=== PATIENT | female | born 1945 | race Caucasian/White ===

== ENCOUNTER → 2022-12-01 12:43 | Outpatient (BNVA) | payer MEDICARE, SELFPAY | PROVIDERS: PCP Nurse Practitioner Family; Visit Provider Nurse Practitioner Family | DX: J44.9 Chronic obstructive pulmonary disease, unspecified (principal); G47.00 Insomnia, unspecified; E11.9 Type 2 diabetes mellitus without complications | CPT/HCPCS: 80053; 80061; 82043; 83036; 84443; 85025 ==

== ENCOUNTER → 2022-12-21 09:54 | Outpatient (BNVA) | payer MEDICARE, SELFPAY | PROVIDERS: PCP Nurse Practitioner Family; Visit Provider Nurse Practitioner Family | DX: R89.9 Unspecified abnormal finding in specimens from other organs, systems and tissues (principal); R79.9 Abnormal finding of blood chemistry, unspecified | CPT/HCPCS: 82607; 82728; 82746; 83550; 85025 ==

== ENCOUNTER → 2022-12-29 13:25 | Outpatient (BNVA) | payer MEDICARE, SELFPAY | PROVIDERS: PCP Nurse Practitioner Family; Visit Provider Nurse Practitioner Family | DX: R89.9 Unspecified abnormal finding in specimens from other organs, systems and tissues (principal) | CPT/HCPCS: 82270 ==

== ENCOUNTER → 2022-12-31 15:20 | Outpatient (BNVA) | payer MEDICARE, SELFPAY | PROVIDERS: PCP Nurse Practitioner Family; Visit Provider Nurse Practitioner Family | DX: Z12.11 Encounter for screening for malignant neoplasm of colon (principal) | CPT/HCPCS: 82270 ==

== ENCOUNTER → 2023-01-12 09:39 | Outpatient (BNVA) | payer MEDICARE, SELFPAY | PROVIDERS: PCP Nurse Practitioner Family; Visit Provider Nurse Practitioner Family | DX: D50.9 Iron deficiency anemia, unspecified (principal) | CPT/HCPCS: 80053; 82728; 83550; 85025 ==

== ENCOUNTER 2023-02-10 10:23 | Emergency (ER) | payer MEDICARE, MEDICAID, SELFPAY ==
[2023-02-10 10:27] VITALS: BP 138/70; PULSE 81; RESP 16; TEMP 36.9; O2SAT 93; BMI 24.0
--- NOTE | 2023-02-10 10:36 | XR_ITS ---
WS: [id number] Right arm and humerus, AP and lateral views, 02/10/2023 Clinical Data: fall injury Comparison: None. Findings: There is a transverse line across the distal right humeral condyle which probably represents a fractu re. There is soft tissue swelling about the right elbow. The shaft of the right humerus and lateral h ead are intact. XR/[place] [address] Impression: Probable fracture of distal right humerus.
--- NOTE | 2023-02-10 10:36 | XR_ITS ---
WS: [id number] Right elbow, 3 views, 02/10/2023 Clinical Data: fall injury Comparison: None. Findings: There is a transverse fracture across the condyles of the distal right humerus. The soft tissues show swelling. The radial head and olecranon are intact. XR/XR elbow RT min 3V* 50121 Impression: Fracture distal right humerus.
--- NOTE | 2023-02-10 10:43 | W.ED.FALL ---
Documented by User: NANETTE Jay 02/10/23 12:00 HPI - Fall General: Chief Complaint: Fall Stated Complaint: FALL/ ARM FRACTURE Time Seen by Provider: 02/10/23 10:25 History of Present Illness: Patient is a 77-year-old female comes to the ED via EMS with right arm injury. Patient says injury occurred yesterday evening. She was at home and went to pull her curtains closed. She has to stand on a love seat to reach the curtains and pull them close. She says she tripped and fell onto floor. She says she did hit right side of her head but denies any loss of consciousness or any headache, nausea or vomiting. Patient is not on a blood thinner. Since fall she has been having pain in her right elbow area. She rates her pain a 9 out of 10. Any range of motion of the elbow causes worsening pain and if she extends her arm she says there is a popping sound. She was unable to get checked out last night because she is watching her grandkids and they were asleep in bed, so she waited to get checked out till the morning. Denies any other injuries. Associated symptoms-after fall: Denies abdominal pain, chest pain, headache(s), hematuria or neck pain Review of Systems Const: Denies: fever(s), chills or fatigue Eyes: Denies: change in vision or eye discomfort ENMT: Denies: throat pain, odynophagia, nasal discharge or nasal congestion Card: Denies: chest pain, palpitations, edema, swelling of feet/ankles, dyspnea on exertion or orthopnea Resp: Denies: dyspnea, productive cough or non-productive cough GI: Denies: abdominal pain, nausea, vomiting, diarrhea, constipation or hematochezia : Denies: flank pain, dysuria or hematuria Musc: Reports: extremity pain (Right elbow), extremity swelling (Right elbow) and limited range of motion (Right elbow); Denies: neck pain or back pain Skin/Breast: Denies: rash or new lesions Neuro: Denies: headache(s), numbness in extremities or weakness in extremities [facility] ED PFSH: Medical History COPD (chronic obstructive pulmonary disease) Diabetes mellitus GERD (gastroesophageal reflux disease) Insomnia Surgical History History of bilateral cataract extraction Family History Mother Heart disease Brother Diabetes Social History Smoking and tobacco status: former smoker Quit status (tobacco): has quit using tobacco Year quit tobacco: quit 2015 Second hand smoke exposure: No Alcohol intake: current Alcohol intake frequency: holidays/special occasions only Alcohol type: beer Substance/Drug Use: never Lives independently: Yes Current occupational status: retired Current gender identity: Female Special amaury needs: No Physical Exam Const: COMMON NORMALS: patient oriented x3 and alert GENERAL APPEARANCE: cooperative HENMT: COMMON NORMALS: normocephalic and atraumatic HEAD & SCALP: normocephalic and atraumatic; no Reid's sign and no raccoon eyes MOUTH: Normal oral and palatal mucosa present THROAT: posterior oropharynx normal and uvula midline Eye: COMMON NORMALS: Equal, round and reactive pupils present, EOMs intact bilaterally and conjunctivae normal CONJUNCTIVA: Yes conjunctivae normal PUPIL: Yes Equal, round and reactive pupils present Neck/C-Spine: COMMON NORMALS: supple GENERAL: Yes normal visual inspection Resp: COMMON NORMALS: normal respiratory effort, No retractions, No use of accessory muscles and clear to auscultation bilaterally AUSCULTATION: clear to auscultation bilaterally Cardio: COMMON NORMALS: regular rate, regular rhythm, S1 normal heart sound present, S2 normal heart sound present, No gallops present (Cardio), No clicks present (Cardio), No murmurs present (Cardio) and Peripheral pulses 2+ throughout RATE: regular rate RHYTHM: regular rhythm HEART SOUNDS: S1 normal heart sound present and S2 normal heart sound present PERIPHERAL PULSES: Peripheral pulses 2+ throughout GI: COMMON NORMALS: Normal to inspection, nondistended, normoactive bowel sounds present, Soft to palpation, non-tender and no masses PALPATION: Yes Soft to palpation : COMMON NORMALS: Yes no CVA tenderness BLADDER/KIDNEY EXAM: Yes no CVA tenderness Back/Pelvis: COMMON NORMALS: no CVA tenderness Extremity: NARRATIVE EXTREMITY EXAM: Right elbow?ecchymosis and swelling noted. No visible deformity seen. Limited range of motion elbow due to pain. Tenderness over distal humerus/superior aspect of elbow. Neurovascular intact. GENERAL: Yes normal exam except as noted Neuro: COMMON NORMALS: patient oriented x3, CN's II-XII intact bilaterally, moves all extremities, no focal motor deficits and no sensory deficits noted SENSORIUM/ORIENTATION: Yes alert COORDINATION/BALANCE: [id number] test normal GAIT: Yes Normal gait present COORDINATION: [id number] test normal Skin: GENERAL SKIN EXAM: dry skin Course Vital Signs: Vital signs: Vital Signs Temperature 98.4 F 02/10/23 10:27 Pulse Rate 81 02/10/23 10:27 Respiratory Rate 16 02/10/23 10:27 Blood Pressure 138/70 02/10/23 10:27 Pulse Oximetry 93 02/10/23 10:27 Oxygen Delivery Me thod Room Air 02/10/23 10:27 MDM - Fall Medical Decision Making Patient is a 77-year-old female comes to the ED via EMS with right arm injury. Patient says injury occurred yesterday evening. She was at home and went to pull her curtains closed. She has to stand on a love seat to reach the curtains and pull them close. She says she tripped and fell onto floor. She says she did hit right side of her head but denies any loss of consciousness or any headache, nausea or vomiting. Patient is not on a blood thinner. Since fall she has been having pain in her right elbow area. She rates her pain a 9 out of 10. Any range of motion of the elbow causes worsening pain and if she extends her arm she says there is a popping sound. She was unable to get checked out last night because she is watching her grandkids and they were asleep in bed, so she waited to get checked out till the morning. Denies any other injuries. Vitals are stable. Neuro exam shows no deficits. Right elbow?ecchymosis and swelling noted. No visible deformity seen. Limited range of motion elbow due to pain. Tenderness over distal humerus/superior aspect of elbow. Neurovascular intact. X-ray of right elbow and right humerus show non displaced distal right humerus fracture. Patient was put in a long-arm splint and sling and I placed order with case management for patient be referred to Ortho for follow-up. Patient stable for discharge home and diagnosed with a right humerus fracture and discharged home with a prescription for hydrocodone to help with pain. Patient understood and agreed with plan. Lab Data Radiology Impressions Elbow X-Ray 02/10/23 10:36 Impression: Fracture distal right humerus. Humerus X-Ray 02/10/23 10:36 Impression: Probable fracture of distal right humerus. Discharge Plan Discharge Patient Disposition: Home Clinical Impression: Humerus distal fracture Qualifiers: Encounter type: initial encounter Fracture type: closed Fracture alignment: nondisplaced Laterality: right Condition: Stable Prescriptions: No Action albuterol sulfate 90 mcg/actuation HFA aerosol inhaler 2 puff inhalation 6XD Trelegy Ellipta 100-62.5-25 mcg blister with device 1 inh inhalation DAILY Mucinex DM 30-600 mg tablet extended release 12 hr 1 tab PO Q12H (DME) oxygen-air delivery systems Device See Rx Instructions .Route Rx Instructions: As directed benzonatate 100 mg capsule 100 mg PO TID PRN (Reason: cough) Qty: 90 2RF nystatin 100,000 unit/mL suspension 5 ml PO QID 7 Days Qty: 140 0RF Rx Instructions: swish and swallow clindamycin HCl 300 mg capsule 300 mg PO TID 10 Days Qty: 30 0RF amitriptyline 25 mg tablet 25 mg PO DAILY hydrocodone-acetaminophen 5-325 mg tablet 1 tab PO DAILY PRN omeprazole 20 mg capsule,delayed release(DR/EC) 20 mg PO DAILY Qty: 90 1RF metformin 500 mg tablet 500 mg PO BID Qty: 60 2RF trazodone 100 mg tablet 100 mg PO DAILY Qty: 90 1RF Discharge Orders: Discharge ED (Routine); Ordered 02/10/23 Ordered By: Kumar Florez Referrals: Aby Bautista FNP [Primary Care Provider] - Discharge Diet: Regular Discharge Activity: Increase activity as tolerated Patient Instructions: Fractures - Humerus, Opioid Safety Activity Restrictions/Additional Instructions: Follow-up with medical provider as directed. Case management should be contacting you in the next several days to set up an appointment with Ortho for follow-up. Take medications as prescribed. Keep splint on and dry and limit activity with right arm until cleared by Ortho. Return to the ER or your medical provider if condition worsens. Please read and understand discharge instructions. Thank you for choosing [facility] for your healthcare needs today. Please realize this is an emergency room and that we are providing you with a medical screening exam and this may not be complete and all inclusive of all the testing and or work up that you may need to determine your ailment or severity of your illness. It is very important that you follow up as instructed or that you return to the Emergency Department should you have concerns or if your condition changes or worsens in any way. Coding Level of Care Code ED Alarm Mechanic for [facility] Documented by User: Martín Servin DO 02/10/23 13:53 HPI - Fall General: Chief Complaint: Fall Stated Complaint: FALL/ ARM FRACTURE Time Seen by Provider: 02/10/23 10:25 [facility] ED PFSH: Medical History COPD (chronic obstructive pulmonary disease) Diabetes mellitus GERD (gastroesophageal reflux disease) Insomnia Surgical History History of bilateral cataract extraction Family History Mother Heart disease Brother Diabetes Social History Smoking and tobacco status: former smoker Quit status (tobacco): has quit using tobacco Year quit tobacco: quit 2015 Second hand smoke exposure: No Alcohol intake: current Alcohol intake frequency: holidays/special occasions only Alcohol type: beer Substance/Drug Use: never Lives independently: Yes Current occupational status: retired Current gender identity: Female Special amaury needs: No Course Vital Signs: Vital signs: Vital Signs Temperature 98.4 F 02/10/23 10:27 Pulse Rate 81 02/10/23 10:27 Respiratory Rate 16 02/10/23 10:27 Blood Pressure 138/70 02/10/23 10:27 Pulse Oximetry 93 02/10/23 10:27 Oxygen Delivery Me thod Room Air 02/10/23 10:27 MDM - Fall Medical Decision Making Patient is a 77-year-old female comes to the ED via EMS with right arm injury. Patient says injury occurred yesterday evening. She was at home and went to pull her curtains closed. She has to stand on a love seat to reach the curtains and pull them close. She says she tripped and fell onto floor. She says she did hit right side of her head but denies any loss of consciousness or any headache, nausea or vomiting. Patient is not on a blood thinner. Since fall she has been having pain in her right elbow area. She rates her pain a 9 out of 10. Any range of motion of the elbow causes worsening pain and if she extends her arm she says there is a popping sound. She was unable to get checked out last night because she is watching her grandkids and they were asleep in bed, so she waited to get checked out till the morning. Denies any other injuries. Vitals are stable. Neuro exam shows no deficits. Right elbow?ecchymosis and swelling noted. No visible deformity seen. Limited range of motion elbow due to pain. Tenderness over distal humerus/superior aspect of elbow. Neurovascular intact. X-ray of right elbow and right humerus show non displaced distal right humerus fracture. Patient was put in a long-arm splint and sling and I placed order with case management for patient be referred to Ortho for follow-up. Patient stable for discharge home and diagnosed with a right humerus fracture and discharged home with a prescription for hydrocodone to help with pain. Patient understood and agreed with plan. Chart reviewed and patient discussed with midlevel. Agree with assessment and plan. Lab Data Radiology Impressions Elbow X-Ray 02/10/23 10:36 Impression: Fracture distal right humerus. Humerus X-Ray 02/10/23 10:36 Impression: Probable fracture of distal right humerus. Discharge Plan Discharge Patient Disposition: Home Clinical Impression: Humerus distal fracture Qualifiers: Encounter type: initial encounter Fracture type: closed Fracture alignment: nondisplaced Laterality: right Condition: Stable Prescriptions: No Action albuterol sulfate 90 mcg/actuation HFA aerosol inhaler 2 puff inhalation 6XD Trelegy Ellipta 100-62.5-25 mcg blister with device 1 inh inhalation DAILY Mucinex DM 30-600 mg tablet extended release 12 hr 1 tab PO Q12H (DME) oxygen-air delivery systems Device See Rx Instructions .Route Rx Instructions: As directed benzonatate 100 mg capsule 100 mg PO TID PRN (Reason: cough) Qty: 90 2RF nystatin 100,000 unit/mL suspension 5 ml PO QID 7 Days Qty: 140 0RF Rx Instructions: swish and swallow clindamycin HCl 300 mg capsule 300 mg PO TID 10 Days Qty: 30 0RF amitriptyline 25 mg tablet 25 mg PO DAILY hydrocodone-acetaminophen 5-325 mg tablet 1 tab PO DAILY PRN omeprazole 20 mg capsule,delayed release(DR/EC) 20 mg PO DAILY Qty: 90 1RF metformin 500 mg tablet 500 mg PO BID Qty: 60 2RF trazodone 100 mg tablet 100 mg PO DAILY Qty: 90 1RF Discharge Orders: Discharge ED (Routine); Ordered 02/10/23 Ordered By: Kumar Florez Referrals: Aby Bautista FNP [Primary Care Provider] - Discharge Diet: Regular Discharge Activity: Increase activity as tolerated Patient Instructions: Fractures - Humerus, Opioid Safety Activity Restrictions/Additional Instructions: Follow-up with medical provider as directed. Case management should be contacting you in the next several days to set up an appointment with Ortho for follow-up. Take medications as prescribed. Keep splint on and dry and limit activity with right arm until cleared by Ortho. Return to the ER or your medical provider if condition worsens. Please read and understand discharge instructions. Thank you for choosing [facility] for your healthcare needs today. Please realize this is an emergency room and that we are providing you with a medical screening exam and this may not be complete and all inclusive of all the testing and or work up that you may need to determine your ailment or severity of your illness. It is very important that you follow up as instructed or that you return to the Emergency Department should you have concerns or if your condition changes or worsens in any way. Coding Level of Care Code ED Alarm Mechanic for [place]
[2023-02-10] MEDS: morphine 4 mg/mL SDV 1 mL IVP (10:59)
[2023-02-10] MEDS: ondansetron 2 mg/ML SDV 2 mL 4 MG IVP (10:59)
--- NOTE | 2023-02-10 15:20 | PC.NURSE ---
Addendum entered by Bernie Carmichael 02/22/23 11:20: Patient had a follow up appointment at ortho - patient did attend appointment. Addendum entered by Bernie Carmichael 02/12/23 11:29: Patient has a follow up appointment scheduled for Thursday, February 16, 2023 at 10:[address] Holly at ortho. Addendum entered by Bernie Carmichael 02/11/23 10:45: shipping/receiving manager received the following message from the ortho clinic regarding follow up appointment: attempt made to contact patient - left vm - trying to get in tomorrow w/ dr petersen Original Note: Patient seen in the ED on 02/10/23/. Referral to ortho for Right distal humerus fracture. Message sent to clinic to call patient with an appt.
== END 2023-02-10 11:53 | disposition home or self-care (01) ==
PROVIDERS: Emergency Provider Physician Assistant; PCP Nurse Practitioner Family
DX: S42.401A Unspecified fracture of lower end of right humerus, initial encounter for closed fracture (principal); W01.0XXA Fall on same level from slipping, tripping and stumbling without subsequent striking against object, initial encounter; Y92.008 Other place in unspecified non-institutional (private) residence as the place of occurrence of the external cause
CPT/HCPCS: 29125; 73060; 73080; 96374; 96375; 99284; J2270; J2405

== ENCOUNTER 2023-02-12 13:53 | Emergency (ER) | payer MEDICARE, MEDICAID, SELFPAY ==
[2023-02-12 13:56] VITALS: BP 125/43; PULSE 87; RESP 16; O2SAT 96
--- NOTE | 2023-02-12 13:58 | W.ED.ARRPALP ---
HPI - Arrhythmia/Palpitations General: Chief Complaint: Arrhythmia/Palpitations Stated Complaint: arrythmias Time Seen by Provider: 02/12/23 13:58 History of Present Illness: Ms. Ramirez is a 77-year-old lady without reported cardiac history presenting to the emergency department for concern over abnormal heart rate. She does have a recent history of arm fracture and has had some pain. Earlier today she noticed that her blood pressure was high and her heart rate was low and variable as low as 40. Denies associated chest pain, shortness of breath above baseline COPD, lightheaded or syncope. Denies changes in medications other than pain medication. Currently symptom-free. No other specific changes in health, exacerbating, or alleviating factors identified. Onset (ago): hour(s) Duration: now resolved Associated symptoms: Reports no associated symptoms Review of Systems General: Reports: 10 or more systems reviewed and unremarkable except in HPI and below PFSH ED PFSH: Medical History COPD (chronic obstructive pulmonary disease) Diabetes mellitus GERD (gastroesophageal reflux disease) Insomnia Surgical History History of bilateral cataract extraction Family History Mother Heart disease Brother Diabetes Social History Smoking and tobacco status: former smoker Quit status (tobacco): has quit using tobacco Year quit tobacco: quit 2015 Second hand smoke exposure: No Alcohol intake: current Alcohol intake frequency: holidays/special occasions only Alcohol type: beer Substance/Drug Use: never Lives independently: Yes Current occupational status: retired Current gender identity: Female Special amaury needs: No Physical Exam Const: COMMON NORMALS: alert GENERAL APPEARANCE: cooperative and well developed HENMT: COMMON NORMALS: normocephalic and atraumatic HEAD & SCALP: normocephalic and atraumatic Eye: COMMON NORMALS: conjunctivae normal CONJUNCTIVA: Yes conjunctivae normal SCLERA: sclerae normal Neck/C-Spine: COMMON NORMALS: supple GENERAL: Yes trachea midline Resp: COMMON NORMALS: clear to auscultation bilaterally EFFORT & INSPECTION: Yes able to speak in complete sentences AUSCULTATION: clear to auscultation bilaterally Cardio: COMMON NORMALS: regular rate and regular rhythm RATE: regular rate RHYTHM: regular rhythm GI: COMMON NORMALS: Soft to palpation PALPATION: Yes Soft to palpation and No Tenderness to palpation present (GI) PERCUSSION: normal to percussion Extremity: GENERAL: Yes normal exam except as noted and No edema Neuro: COMMON NORMALS: moves all extremities SENSORIUM/ORIENTATION: Yes alert and No Orientation impaired Psych: COMMON NORMALS: mental status grossly normal and Normal thought process present THOUGHT PROCESS: Normal thought process present Course Vital Signs: Vital signs: Vital Signs Pulse Rate 91 02/12/23 17:31 Respiratory Rate 15 02/12/23 14:33 Blood Pressure 153/55 02/12/23 15:30 Pulse Oximetry 96 02/12/23 17:31 Oxygen Delivery Me thod Nasal Cannula 02/12/23 15:30 Oxygen Flow Rate 2 02/12/23 15:30 MDM - Arrhythmia/Palpitations Medical Decision Making 77-year-old lady presenting due to concern over variable and abnormal heart rate. Exam as above. EKG demonstrates atrial rhythm with frequent PVCs. In review of SPO2 pleth the majority of all beats are perfusing however there is occasional variability. No STEMI. Labs notable for no leukocytosis, near baseline microcytic anemia. Mild evidence of dehydration on metabolic panel with hyponatremia and hypochloremia. Negative range 2-hour delta troponin. BNP is only minimally elevated without evidence of gross volume overload on clinical exam. Recent prior x-rays reviewed. Patient treated with magnesium replenishment for low magnesium. Exact etiology of patient's symptoms is unclear however does not appear to need hospitalization at this time. I will plan for further outpatient evaluation including Holter monitor, echocardiogram, further evaluation. The results of ED evaluation were discussed with the patient including prescriptions and/or symptomatic cares (if applicable) including appropriate and responsible use, followup plan, and return precautions. The patient verbalized understanding and felt safe for discharge. Medical Records I reviewed the patient's medical records. Lab Data I reviewed the patient's lab results. 02/12/23 14:14 02/12/23 14:14 Laboratory Results WBC 5.6 10^3/uL (4.0-10.0) 02/12/23 14:14 RBC 4.49 10^6/uL (4.1-5.3) 02/12/23 14:14 Hgb 8.8 g/dL (11.5-15.3) L 02/12/23 14:14 Hct 31.5 % (37.0-47.0) L 02/12/23 14:14 MCV 70.2 fl (81-99) L 02/12/23 14:14 MCH 19.6 pg (28.0-34.0) L 02/12/23 14:14 MCHC 27.9 g/dL (30.0-36.0) L 02/12/23 14:14 RDW 18.6 % (12.1-15.1) H 02/12/23 14:14 Plt Count 250 10^3/cmm (130-400) 02/12/23 14:14 MPV 10.7 fL (7.4-10.4) H 02/12/23 14:14 Neut % (Auto) 66.7 % 02/12/23 14:14 Lymph % (Auto) 18.3 % 02/12/23 14:14 Eagle % (Auto) 9.2 % 02/12/23 14:14 Eos % (Auto) 4.3 % 02/12/23 14:14 Baso % (Auto) 1.1 % 02/12/23 14:14 Neut # (Auto) 3.77 10^3/uL (1.8-7.7) 02/12/23 14:14 Lymph # (Auto) 1.0 10^3/uL (0.8-4.8) 02/12/23 14:14 Eagle # (Auto) 0.5 10^3/uL (0.2-0.9) 02/12/23 14:14 Eos # (Auto) 0.2 10^3/uL (0.0-0.8) 02/12/23 14:14 Baso # (Auto) 0.1 10^3/uL (0.0-0.1) 02/12/23 14:14 Nucleated RBC % (auto) 0 % 02/12/23 14:14 Nucleated RBCs # 0.0 /100WBC 02/12/23 14:14 Sodium 132 mmol/L (136-145) L 02/12/23 14:14 Potassium 4.3 mmol/L (3.5-5.1) 02/12/23 14:14 Chloride 97 mmol/L (98-107) L 02/12/23 14:14 Carbon Dioxide 24 mmol/L (22-29) 02/12/23 14:14 Anion Gap 15.3 (5-19) 02/12/23 14:14 BUN 15 mg/dL (8-23) 02/12/23 14:14 Creatinine 1.0 mg/dL (0.5-0.9) H 02/12/23 14:14 GFR Calculation Not Reportable 02/12/23 14:14 Glucose 96 mg/dL (65-115) 02/12/23 14:14 Calculated Osmolality 275 mOsm/kg (285-295) L 02/12/23 14:14 Calcium 8.6 mg/dL (8.5-10.5) 02/12/23 14:14 Magnesium 1.7 mg/dL (1.7-2.3) 02/12/23 14:14 Total Bilirubin 0.3 mg/dL (0.15-1.2) 02/12/23 14:14 AST 18 U/L (0-32) 02/12/23 14:14 ALT 12 U/L (0-33) 02/12/23 14:14 Alkaline Phosphatase 74 U/L (35-105) 02/12/23 14:14 Troponin T Baseline 22 ng/L (0-10) H 02/12/23 14:14 Troponin T 120 Minute 16.17 ng/L (0-10) H 02/12/23 15:55 Delta Troponin T -5.83 ABS# (0-10) L 02/12/23 15:55 NT-Pro-B Natriuret Pep 1281 pg/mL (0-450) H 02/12/23 14:14 Total Protein 6.6 g/dL (6.6-8.7) 02/12/23 14:14 Albumin 3.8 g/dL (3.5-5.2) 02/12/23 14:14 Globulin 2.8 g/dL (1.3-4.6) 02/12/23 14:14 TSH 2.75 uIU/mL (0.27-4.20) 02/12/23 14:14 Discharge Plan Discharge Patient Disposition: Home Clinical Impression: Arrhythmia, Ventricular premature beats, Anemia, Hypomagnesemia, Dehydration, mild Condition: Stable Prescriptions: No Action albuterol sulfate 90 mcg/actuation HFA aerosol inhaler 2 puff inhalation 6XD PRN (Reason: Shortness Of Breath) Trelegy Ellipta 100-62.5-25 mcg blister with device 1 inh inhalation DAILY Mucinex DM 30-600 mg tablet extended release 12 hr 1 tab PO Q12H PRN (Reason: Congestion) (DME) oxygen-air delivery systems Device See Rx Instructions .Route Rx Instructions: As directed benzonatate 100 mg capsule 100 mg PO TID PRN (Reason: cough) Qty: 90 2RF clindamycin HCl 300 mg capsule 300 mg PO TID 10 Days Qty: 30 0RF amitriptyline 25 mg tablet 25 mg PO BEDTIME omeprazole 20 mg capsule,delayed release(DR/EC) 20 mg PO DAILY Qty: 90 1RF hydrocodone-acetaminophen 5-325 mg tablet 1 tab PO DAILY PRN (Reason: Pain) 7 Days Qty: 30 0RF metformin 500 mg tablet 500 mg PO BID Qty: 60 2RF trazodone 100 mg tablet 100 mg PO BEDTIME Discharge Orders: Discharge ED (Routine); Ordered 02/12/23 Ordered By: Andrzej Lazcano Other Ambulatory Orders: ECG holter monitor 7 Days (Routine) Timeframe: 3 Days Facility: [facility] - Location: Radiology Ordered By: Andrzej Lazcano Referrals: Aby Bautista FNP [Primary Care Provider] - Discharge Diet: Usual diet Discharge Activity: Resume usual activity Patient Instructions: Premature Ventricular Contractions (ED) Activity Restrictions/Additional Instructions: Thank you for visiting the emergency department. You were seen and evaluated for heart rate changes. The exact cause your symptoms is unclear. You do have occasional premature ventricular contractions which at times can cause symptoms/be uncomfortable. I will message case management for cardiology follow-up as well as outpatient echocardiogram, you should be contacted early next week for scheduling. Additionally I will order a outpatient air sampling and monitoring. Please follow-up with your primary care provider. Return to the emergency department for chest pain, shortness of breath, lightheadedness or dizziness, or anything else that you are concerned about and feel needs emergency department evaluation. Coding Level of Care Code ED [place] for [place]
--- NOTE | 2023-02-12 14:09 | ECG_ITS ---
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 Measurements Intervals [place] Rate: 88 P: 142 NC: 141 QRS: 7 QRSD: 99 T: 142 QT: 353 QTc: 429 Interpretive Statements ECTOPIC ATRIAL RHYTHM WITH FREQUENT VENTRICULAR PREMATURE COMPLEXES IN A BIGEMINAL PATTERN ABNORMAL QRS-T ANGLE [QRS-T AXIS DIFFERENCE > 60] No previous ECG available for comparison Electronically Signed On 02-13-2023 5:58:07 CDT by Dona Tucker M.D. [id number]
[2023-02-12 14:23] LABS: Basophils # 0.1 10^3/uL (0.0-0.1); Basophils % 1.1 %; Eosinophils # 0.2 10^3/uL (0.0-0.8); Eosinophils % 4.3 %; Hematocrit 31.5 % (37.0-47.0); Hemoglobin 8.8 g/dL (11.5-15.3); Lymphocytes % 18.3 %; Mean Corpuscular HGB Conc 27.9 g/dL (30.0-36.0); Mean Corpuscular Hemoglobin 19.6 pg (28.0-34.0); Mean Corpuscular Volume 70.2 fl (81-99); Mean Platelet Volume 10.7 fL (7.4-10.4); Monocytes # 0.5 10^3/uL (0.2-0.9); Monocytes % 9.2 %; Neutrophils # 3.77 10^3/uL (1.8-7.7); Neutrophils % 66.7 %; Nucleated Red Blood Cells % 0 %; Platelet Count 250 10^3/cmm (130-400); Red Blood Count 4.49 10^6/uL (4.1-5.3); Red Cell Distribution Width 18.6 % (12.1-15.1); White Blood Count 5.6 10^3/uL (4.0-10.0)
[2023-02-12 14:33] VITALS: BP 125/52; PULSE 82; RESP 15; O2SAT 98
[2023-02-12 14:50] LABS: Troponin(5th) Baseline 22 ng/L (0-10)
[2023-02-12 15:00] LABS: Alanine Aminotransferase 12 U/L (0-33); Albumin Level 3.8 g/dL (3.5-5.2); Alkaline Phosphatase 74 U/L (35-105); Anion Gap 15.3 (5-19); Aspartate Amino Transferase 18 U/L (0-32); Blood Urea Nitrogen 15 mg/dL (8-23); Calcium 8.6 mg/dL (8.5-10.5); Carbon Dioxide 24 mmol/L (22-29); Chloride 97 mmol/L (98-107); Globulin 2.8 g/dL (1.3-4.6); Glucose 96 mg/dL (65-115); Magnesium 1.7 mg/dL (1.7-2.3); NT Pro B Type Natriuretic Pept 1281 pg/mL (0-450); Osmolality Calculated 275 mOsm/kg (285-295); Potassium 4.3 mmol/L (3.5-5.1); Sodium 132 mmol/L (136-145); Thyroid Stimulating Hormone 2.75 uIU/mL (0.27-4.20); Total Bilirubin 0.3 mg/dL (0.15-1.2); Total Protein 6.6 g/dL (6.6-8.7)
[2023-02-12] MEDS: magnesium sulfate premix 2 GM/50 ML PIGGYBACK IV (15:19)
[2023-02-12 15:30] VITALS: BP 153/55; PULSE 91; O2SAT 98
--- NOTE | 2023-02-12 16:09 | ECG_ITS ---
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 Measurements Intervals [place] Rate: 82 P: 43 TN: 163 QRS: 2 QRSD: 95 T: 130 QT: 361 QTc: 424 Interpretive Statements SINUS RHYTHM WITH FREQUENT VENTRICULAR PREMATURE COMPLEXES NONSPECIFIC T-WAVE ABNORMALITY Compared to ECG 02/12/2023 14:58:26 T-wave abnormality now present Ectopic atrial rhythm no longer present Electronically Signed On 02-13-2023 6:18:44 CDT by Dona Tucker M.D. [id number]
[2023-02-12 16:37] LABS: Troponin 5 2HR 16.17 ng/L (0-10)
[2023-02-12 16:52] LABS: Troponin 5 2HR Delta -5.83 ABS# (0-10)
[2023-02-12 17:31] VITALS: PULSE 91; O2SAT 96
--- NOTE | 2023-02-14 05:48 | DCPLANNER ---
Addendum entered by Bernie Carmichael 05/06/23 13:52: Patient had an echo scheduled - patient did attend appointment patient attended appointment scheduled with [facility] Addendum entered by Bernie Carmichael 02/22/23 10:05: Patient has a follow up appointment scheduled for , March 25, 2023 at 3:[address] Gama at [facility]. Original Note: manager operations had message to schedule a follow up appointment for patient with cardiology. manager operations sent patients information to the front office staff at [facility]. Patients information will be printed and reviewed. Clinic will call patient with appointment information. Case manage had message to schedule an outpatient echocardiogram for patient. manager operations faxed signed order to centralized scheduling, who will call patient with appointment information.
== END 2023-02-12 17:33 | disposition home or self-care (01) ==
PROVIDERS: Emergency Provider Emergency Medicine; PCP Nurse Practitioner Family
DX: I49.3 Ventricular premature depolarization (principal); D64.9 Anemia, unspecified; E86.0 Dehydration; E83.42 Hypomagnesemia; Z79.84 Long term (current) use of oral hypoglycemic drugs; J44.9 Chronic obstructive pulmonary disease, unspecified; E11.9 Type 2 diabetes mellitus without complications; Z87.891 Personal history of nicotine dependence
CPT/HCPCS: 80053; 83735; 83880; 84443; 84484; 85025; 93005; 96374; 99284; J3475

== ENCOUNTER → 2023-02-16 10:48 | Outpatient (BNVA) | payer MEDICARE, MEDICAID, SELFPAY | PROVIDERS: PCP Nurse Practitioner Family; Visit Provider Orthopaedic Surgery | DX: S42.401A Unspecified fracture of lower end of right humerus, initial encounter for closed fracture (principal); W19.XXXA Unspecified fall, initial encounter | CPT/HCPCS: 24530; 29065; 73080; 99203 ==

== ENCOUNTER → 2023-03-05 15:35 | Outpatient (BNVA) | payer MEDICARE, MEDICAID, SELFPAY | PROVIDERS: PCP Nurse Practitioner Family; Visit Provider Nurse Practitioner Family | DX: D50.9 Iron deficiency anemia, unspecified (principal); L03.115 Cellulitis of right lower limb; L03.116 Cellulitis of left lower limb | CPT/HCPCS: 85025 ==

== ENCOUNTER → 2023-03-09 10:34 | Outpatient (BNVA) | payer MEDICARE, MEDICAID, SELFPAY | PROVIDERS: PCP Nurse Practitioner Family; Visit Provider Nurse Practitioner Family | DX: S42.401A Unspecified fracture of lower end of right humerus, initial encounter for closed fracture (principal); X58.XXXA Exposure to other specified factors, initial encounter | CPT/HCPCS: 73080; 99213 ==

== ENCOUNTER 2023-03-19 09:24 | Outpatient (CLI) | payer MEDICARE, MEDICAID, SELFPAY ==
--- NOTE | 2023-03-19 09:35 | USCV_ITS ---
Alexa Ramirez Age: 77 Gender: F : 1945 Exam Date: 03/19/2023 09:55 Ordering Phys: Yayo Busby DO Technologist: Exam Location: [facility] Indication: chest pain murmur BP: 127 / 72 HR: 91 Rhythm: Sinus Technical Quality: Adequate MEASUREMENTS (Male / Female) Normal Values 2D ECHO LV Diastolic Diameter PLAX 4.2 cm 4.2 - 5.9 / 3.9 - 5.3 cm LV Systolic Diameter PLAX 2.7 cm IVS Diastolic Thickness 1.1 cm 0.6 - 1.0 / 0.6 - 0.9 cm IVS Systolic Thickness 1.4 cm LVPW Diastolic Thickness 1.2 cm 0.6 - 1.0 / 0.6 - 0.9 cm LVPW Systolic Thickness 1.3 cm LVOT Diameter 2.0 cm LV Ejection Fraction 2D Teich 65.9 % LV Ejection Fraction MOD 2C 68.4 % LV Ejection Fraction 2C AL 68.3 % LA Diameter 3.0 cm Aorta at Sinotubular Diameter 3.3 cm IVC Diameter 2.1 cm M-MODE Aortic Annulus Diameter 3.3 cm LA Ao Ratio MM 1.0 MV E Point Septal Separation 1.3 cm DOPPLER AV Peak Velocity 202.0 cm/s LVOT Peak Velocity 104.0 cm/s AV Area Cont Eq vti 2.3 cm squared AV Area Cont Eq pk 1.6 cm squared MV Area PHT 5.0 cm squared Mitral E to A Ratio 0.8 MV E' Velocity 54.0 cm/s Mitral E to MV E' Ratio 15.8 Mitral E to LV E' Lateral Ratio 19.8 Mitral E to LV E' Septal Ratio 13.4 TR Peak Velocity 310.3 cm/s TR Peak Gradient 38.5 mmHg TV Peak E Velocity 93.0 cm/s Right Atrial Pressure 3.0 mmHg Pulmonary Artery Systolic Pressu 41.5 mmHg PV Peak Velocity 121.0 cm/s FINDINGS Left Ventricle Left ventricle is normal in size. LV systolic function normal with EF of 55 to 60%. No regional wall motion abnormalities are seen. Right Ventricle Normal in size and function Right Atrium Normal in size Left Atrium Normal in size Mitral Valve Structurally normal mitral valve. Trace mitral regurgitation. Aortic Valve Structurally normal aortic valve. No significant stenosis. Mild aortic regurgitation. Tricuspid Valve Mild tricuspid regurgitation. Insufficient TR jet to calculate RVSP Pulmonic Valve Not well visualized. Trace pulmonic regurgitation. Pericardium Normal Aorta Normal in size IVC Appears to be normal CONCLUSIONS LV systolic function is normal with EF of 55 to 60%. Trace mitral regurgitation Mild aortic regurgitation Mild tricuspid regurgitation Trace pulmonic regurgitation No comparison studies are available. Javier Azevedo MD (Electronically Signed) Final Date: 28 March 2023 12:12 S
== END 2023-03-19 09:25 | disposition home or self-care (01) ==
LOC: RAD 09:25
PROVIDERS: PCP Nurse Practitioner Family; Visit Provider Emergency Medicine
DX: I49.9 Cardiac arrhythmia, unspecified (principal)
CPT/HCPCS: 93306

== ENCOUNTER 2023-03-22 09:30 | Oncology outpatient (recurring) (ONCR) | payer MEDICARE, MEDICAID, SELFPAY ==
[2023-03-22 09:25] VITALS: BP 166/72; PULSE 107; RESP 18; TEMP 36.3; O2SAT 91
[2023-03-22] MEDS: sodium chloride 0.9% 250 ML 75 ML IV (09:49)
[2023-03-22 14:10] VITALS: BP 150/56; PULSE 46; RESP 16; TEMP 36.5; O2SAT 91
== END 2023-03-26 23:59 | disposition home or self-care (01) ==
PROVIDERS: PCP Nurse Practitioner Family; Visit Provider Internal Medicine Medical Oncology
DX: D50.9 Iron deficiency anemia, unspecified (principal)
CPT/HCPCS: 96365; 96366; 99203; J1756; J7050

== ENCOUNTER 2023-03-26 16:51 | Emergency (ER) | payer MEDICARE, MEDICAID, SELFPAY ==
--- NOTE | 2023-03-26 16:53 | USR_ITS ---
PROCEDURE INFORMATION: Exam: US Duplex Left Upper Extremity Veins, Limited Exam date and time: 03/26/2023 5:49 PM Age: 77 years old Clinical indication: Pain; Other: Left arm at elbow; Additional info: Pain/swelling/recent iv placement; Concerned for thrombus TECHNIQUE: Imaging protocol: Real-time duplex ultrasound of the left extremity with 2-D smith scale, color Doppler flow and spectral waveform analysis including responses to compression and other maneuvers (when performed) with image documentation. Limited exam focused on the left upper extremity veins. COMPARISON: No relevant prior studies available. FINDINGS: Left deep veins: Internal jugular, subclavian, axillary, brachial, radial and ulnar veins patent without thrombus. Normal compressibility, augmentation response and/or Doppler waveforms. Left superficial veins: Hypoechoic, occlusive thrombus in the cephalic vein at the level of the antecubital fossa. Visualized basilic vein patent without thrombus. Soft tissues: Unremarkable. US/[place] [id number] IMPRESSION: 1. No evidence of deep vein thrombosis. 2. Hypoechoic, occlusive thrombus in the cephalic vein at the level of the antecubital fossa.
[2023-03-26 17:20] VITALS: BP 118/61; PULSE 100; RESP 16; TEMP 36.6; O2SAT 91; BMI 24.5
--- NOTE | 2023-03-26 19:28 | W.ED.SKABFB ---
HPI - Skin/Abscess/Foreign Bdy General: Chief complaint: Skin/Abscess/Foreign Body Stated complaint: dominguez sent/lump on arm/ Time Seen by Provider: 03/26/23 19:03 History of Present Illness: Patient is a 77-year-old female comes to the ED with swollen area around left elbow. Patient noticed the swelling this morning. She states that she had an iron infusion done approximately 4 days ago and they injected in a vein right around where the swollen nodule area is. Swollen area just causes some mild discomfort. Denies any other injury or trauma. Denies chest pain, shortness of breath or hemoptysis. Patient is not on any blood thinners. Associated symptoms: Deny chills, fever(s), nausea or vomiting Review of Systems Const: Denies: fever(s), chills or fatigue Eyes: Denies: change in vision or eye discomfort ENMT: Denies: throat pain, odynophagia, nasal discharge or nasal congestion Card: Denies: chest pain, palpitations, edema, swelling of feet/ankles, dyspnea on exertion or orthopnea Resp: Denies: dyspnea, productive cough or non-productive cough GI: Denies: abdominal pain, nausea, vomiting, diarrhea, constipation or hematochezia : Denies: flank pain, dysuria or hematuria Musc: Reports: extremity swelling (Localized swollen area at left elbow); Denies: neck pain or back pain Skin/Breast: Denies: rash or new lesions Neuro: Denies: headache(s), numbness in extremities or weakness in extremities [facility] ED PFSH: Medical History COPD (chronic obstructive pulmonary disease) Diabetes mellitus GERD (gastroesophageal reflux disease) Insomnia Surgical History History of bilateral cataract extraction Family History Mother Heart disease Brother Diabetes Social History Smoking and tobacco status: former smoker Quit status (tobacco): has quit using tobacco Year quit tobacco: quit 2015 Second hand smoke exposure: No Alcohol intake: current Alcohol intake frequency: holidays/special occasions only Alcohol type: beer Substance/Drug Use: never Lives independently: Yes Current occupational status: retired Current gender identity: Female Special amaury needs: No Physical Exam Const: COMMON NORMALS: no acute distress, patient oriented x3 and alert HENMT: COMMON NORMALS: normocephalic HEAD & SCALP: normocephalic MOUTH: Normal oral and palatal mucosa present THROAT: posterior oropharynx normal and uvula midline Neck/C-Spine: COMMON NORMALS: supple GENERAL: Yes normal visual inspection Resp: COMMON NORMALS: normal respiratory effort, No retractions, No use of accessory muscles and clear to auscultation bilaterally AUSCULTATION: clear to auscultation bilaterally Cardio: COMMON NORMALS: regular rate, regular rhythm, S1 normal heart sound present, S2 normal heart sound present, No gallops present (Cardio), No clicks present (Cardio), No murmurs present (Cardio) and Peripheral pulses 2+ throughout RATE: regular rate RHYTHM: regular rhythm HEART SOUNDS: S1 normal heart sound present and S2 normal heart sound present PERIPHERAL PULSES: Peripheral pulses 2+ throughout GI: COMMON NORMALS: Normal to inspection, nondistended, normoactive bowel sounds present, Soft to palpation, non-tender and no masses PALPATION: Yes Soft to palpation : COMMON NORMALS: Yes no CVA tenderness BLADDER/KIDNEY EXAM: Yes no CVA tenderness Back/Pelvis: COMMON NORMALS: no CVA tenderness Extremity: NARRATIVE EXTREMITY EXAM: Patient has localized swelling with mild tenderness noted. No erythema or warmth seen. Findings suggestive of a possible venous thrombosis. Neuro: COMMON NORMALS: patient oriented x3 SENSORIUM/ORIENTATION: Yes alert GAIT: Yes Normal gait present Skin: GENERAL SKIN EXAM: dry skin Course Vital Signs: Vital signs: Vital Signs Temperature 97.9 F 03/26/23 17:20 Pulse Rate 100 03/26/23 17:20 Respiratory Rate 16 03/26/23 17:20 Blood Pressure 118/61 03/26/23 17:20 Pulse Oximetry 91 03/26/23 17:20 Oxygen Delivery Me thod Room Air 03/26/23 17:20 MDM - Skin/Abscess/Foreign Bdy Medicial Decision Making Patient is a 77-year-old female comes to the ED with swollen area around left elbow. Patient noticed the swelling this morning. She states that she had an iron infusion done approximately 4 days ago and they injected in a vein right around where the swollen nodule area is. Swollen area just causes some mild discomfort. Denies any other injury or trauma. Denies chest pain, shortness of breath or hemoptysis. Patient is not on any blood thinners. Metals are stable. Patient appears nontoxic in no acute distress or pain. Patient has localized swelling with mild tenderness noted. No erythema or warmth seen. Findings suggestive of a possible venous thrombosis. Ultrasound venous duplex of left upper extremity showed no evidence of DVT but did note a superficial venous thrombosis of the cephalic vein at the level of antecubital fossa. Patient was diagnosed with superficial venous thrombosis of the left arm and was stable for discharge home. She was instructed on how to care for thrombosis by elevating and applying warm compresses on area. Take [id number] NSAIDs. Follow-up with PCP in the next week for reevaluation. Patient understood and agreed with plan. Lab Data Radiology Impressions Venous Duplex 03/26/23 16:53 IMPRESSION: 1. No evidence of deep vein thrombosis. 2. Hypoechoic, occlusive thrombus in the cephalic vein at the level of the antecubital fossa. Discharge Plan Discharge Patient Disposition: Home Clinical Impression: Superficial venous thrombosis of left arm Condition: Stable Prescriptions: No Action albuterol sulfate 90 mcg/actuation HFA aerosol inhaler 2 puff inhalation 6XD PRN (Reason: Shortness Of Breath) Trelegy Ellipta 100-62.5-25 mcg blister with device 1 inh inhalation DAILY (DME) oxygen-air delivery systems Device See Rx Instructions .Route Rx Instructions: As directed benzonatate 100 mg capsule 100 mg PO TID PRN (Reason: cough) Qty: 90 2RF omeprazole 20 mg capsule,delayed release(DR/EC) 20 mg PO DAILY Qty: 90 1RF furosemide 20 mg tablet 20 mg PO QAM PRN (Reason: edema) Qty: 30 0RF metformin 500 mg tablet 500 mg PO BID Qty: 60 2RF amitriptyline 25 mg tablet 25 mg PO BEDTIME Qty: 90 0RF hydrocodone-acetaminophen 5-325 mg tablet 1 tab PO Q6H PRN (Reason: Pain) 5 Days Qty: 20 0RF trazodone 100 mg tablet 100 mg PO BEDTIME Discharge Orders: Discharge ED (Routine); Ordered 03/26/23 Ordered By: Kumar Florez Referrals: Dominguez,Aby, [facility] OPERATIONS INTELLIGENCE CHIEF [Primary Care Provider] - Discharge Diet: Regular Discharge Activity: Resume usual activity Patient Instructions: Superficial Thrombophlebitis (ED) Activity Restrictions/Additional Instructions: Follow-up with medical provider as directed in the next 5 to 7 days for reevaluation. Use warm compress on swollen area to help with symptoms, elevate and take [id number] ibuprofen or naproxen for any pain. Continue taking all home medications as previously prescribed. Return to the ER or your medical provider if condition worsens. Please read and understand discharge instructions. Thank you for choosing [facility] for your healthcare needs today. Please realize this is an emergency room and that we are providing you with a medical screening exam and this may not be complete and all inclusive of all the testing and or work up that you may need to determine your ailment or severity of your illness. It is very important that you follow up as instructed or that you return to the Emergency Department should you have concerns or if your condition changes or worsens in any way. Coding Level of Care Code ED [place] for [place]
== END 2023-03-26 20:01 | disposition home or self-care (01) ==
PROVIDERS: Emergency Provider Physician Assistant; PCP Nurse Practitioner Family
DX: I82.612 Acute embolism and thrombosis of superficial veins of left upper extremity (principal); Z79.84 Long term (current) use of oral hypoglycemic drugs; Z87.891 Personal history of nicotine dependence; J44.9 Chronic obstructive pulmonary disease, unspecified; E11.9 Type 2 diabetes mellitus without complications
CPT/HCPCS: 93971; 99284

== ENCOUNTER 2023-04-05 13:56 | Oncology outpatient (recurring) (ONCR) | payer MEDICARE, MEDICAID, SELFPAY ==
[2023-04-05 14:04] VITALS: BP 130/66; PULSE 91; RESP 18; TEMP 36.4; O2SAT 92
[2023-04-05] MEDS: sodium chloride 0.9% 250 ML 75 ML IV (14:12)
[2023-04-05 17:16] VITALS: BP 140/73; PULSE 85; RESP 17; TEMP 36.6; O2SAT 92
== END 2023-04-26 23:59 | disposition home or self-care (01) ==
PROVIDERS: PCP Nurse Practitioner Family; Visit Provider Internal Medicine Medical Oncology
DX: D50.9 Iron deficiency anemia, unspecified (principal)
CPT/HCPCS: 96374; J1756; J7050

== ENCOUNTER → 2023-04-14 13:15 | Outpatient (BNVA) | payer MEDICARE, MEDICAID, SELFPAY | PROVIDERS: PCP Nurse Practitioner Family; Visit Provider Nurse Practitioner Family | DX: S42.401A Unspecified fracture of lower end of right humerus, initial encounter for closed fracture (principal); X58.XXXA Exposure to other specified factors, initial encounter | CPT/HCPCS: 73080; 99213 ==

== ENCOUNTER → 2023-04-21 11:08 | Outpatient (BNVA) | payer MEDICARE, MEDICAID, SELFPAY | PROVIDERS: PCP Nurse Practitioner Family; Visit Provider Internal Medicine Pulmonary Disease | DX: R06.02 Shortness of breath (principal) | CPT/HCPCS: 82785; 86003; 99204 ==

== ENCOUNTER → 2023-04-28 13:31 | Outpatient (BNVA) | payer MEDICARE, MEDICAID, SELFPAY | PROVIDERS: PCP Nurse Practitioner Family; Visit Provider Nurse Practitioner Family | DX: S42.401A Unspecified fracture of lower end of right humerus, initial encounter for closed fracture; X58.XXXA Exposure to other specified factors, initial encounter | CPT/HCPCS: 73070; 99213 ==

== ENCOUNTER → 2023-04-29 14:23 | Outpatient (BNVA) | payer MEDICARE, MEDICAID, SELFPAY | PROVIDERS: PCP Nurse Practitioner Family; Visit Provider Internal Medicine | DX: R07.9 Chest pain, unspecified (principal) | CPT/HCPCS: 93005; 99204 ==

== ENCOUNTER → 2023-04-30 09:50 | Outpatient (BNVA) | payer MEDICARE, MEDICAID, SELFPAY | PROVIDERS: PCP Nurse Practitioner Family; Visit Provider Nurse Practitioner Family | DX: R39.9 Unspecified symptoms and signs involving the genitourinary system (principal) | CPT/HCPCS: 81003; 87077; 87086; 87184 ==

== ENCOUNTER 2023-05-10 09:31 | Oncology outpatient (recurring) (ONCR) | payer MEDICARE, MEDICAID, SELFPAY ==
[2023-05-10 09:55] VITALS: BP 144/76; PULSE 96; RESP 18; TEMP 36.5; O2SAT 92
[2023-05-10 09:56] VITALS: BMI 24.0
[2023-05-10 10:34] LABS: Basophils # 0.1 10^3/uL (0.0-0.1); Basophils % 1.9 %; Eosinophils # 0.2 10^3/uL (0.0-0.8); Hematocrit 45.8 % (37.0-47.0); Hemoglobin 13.8 g/dL (11.5-15.3); Lymphocytes # 1.3 10^3/uL (0.8-4.8); Lymphocytes % 26.4 %; Mean Corpuscular HGB Conc 30.1 g/dL (30.0-36.0); Mean Corpuscular Hemoglobin 24.5 pg (28.0-34.0); Mean Corpuscular Volume 81.2 fl (81-99); Mean Platelet Volume 10.3 fL (7.4-10.4); Monocytes # 0.5 10^3/uL (0.2-0.9); Monocytes % 9.8 %; Neutrophils # 2.75 10^3/uL (1.8-7.7); Neutrophils % 57.5 %; Nucleated Red Blood Cells % 0 %; Platelet Count 215 10^3/cmm (130-400); Red Blood Count 5.64 10^6/uL (4.1-5.3); Red Cell Distribution Width 24.2 % (12.1-15.1); White Blood Count 4.8 10^3/uL (4.0-10.0)
[2023-05-10 10:55] LABS: Alanine Aminotransferase 15 U/L (0-33); Albumin Level 3.9 g/dL (3.5-5.2); Alkaline Phosphatase 75 U/L (35-105); Anion Gap 14.6 (5-19); Aspartate Amino Transferase 19 U/L (0-32); Blood Urea Nitrogen 11 mg/dL (8-23); Carbon Dioxide 27 mmol/L (22-29); Chloride 105 mmol/L (98-107); Ferritin 189 ng/mL (15-150); Globulin 2.9 g/dL (1.3-4.6); Glucose 113 mg/dL (65-115); Iron 54 ug/dL (37-145); Osmolality Calculated 294 mOsm/kg (285-295); Percent Saturation 21.4 % (20-50); Potassium 4.6 mmol/L (3.5-5.1); Sodium 142 mmol/L (136-145); Total Bilirubin 0.3 mg/dL (0.15-1.2); Total Iron Binding Capacity 252 mcg/dl; Total Protein 6.8 g/dL (6.6-8.7); Unsaturated Iron Binding 198 ug/dL (112-347)
== END 2023-05-27 23:59 | disposition home or self-care (01) ==
LOC: ONCMED 09:32
PROVIDERS: Internal Medicine Medical Oncology; PCP Nurse Practitioner Family; Visit Provider Internal Medicine Medical Oncology
DX: D50.9 Iron deficiency anemia, unspecified (principal)
CPT/HCPCS: 36415; 80053; 82728; 83540; 83550; 85025; 99213

== ENCOUNTER → 2023-05-12 12:51 | Outpatient (BNVA) | payer MEDICARE, MEDICAID, SELFPAY | PROVIDERS: PCP Nurse Practitioner Family; Visit Provider Nurse Practitioner Family | DX: S42.401A Unspecified fracture of lower end of right humerus, initial encounter for closed fracture; X58.XXXA Exposure to other specified factors, initial encounter | CPT/HCPCS: 73070; 99214 ==

== ENCOUNTER → 2023-06-02 13:04 | Outpatient (BNVA) | payer MEDICARE, MEDICAID, SELFPAY | PROVIDERS: PCP Nurse Practitioner Family; Visit Provider Nurse Practitioner Family | DX: X58.XXXA Exposure to other specified factors, initial encounter; Y93.K1 Activity, walking an animal; S42.401A Unspecified fracture of lower end of right humerus, initial encounter for closed fracture | CPT/HCPCS: 73080; 99213 ==

== ENCOUNTER → 2023-08-06 10:38 | Outpatient (BNVA) | payer MEDICARE, MEDICAID, SELFPAY | PROVIDERS: PCP Nurse Practitioner Family; Visit Provider Physician Assistant | DX: S42.401A Unspecified fracture of lower end of right humerus, initial encounter for closed fracture (principal); X58.XXXA Exposure to other specified factors, initial encounter | CPT/HCPCS: 73070; 99213 ==

== ENCOUNTER → 2023-08-25 11:11 | Outpatient (BNVA) | payer MEDICARE, MEDICAID, SELFPAY | PROVIDERS: PCP Nurse Practitioner Family; Visit Provider Nurse Practitioner Family | DX: R30.0 Dysuria (principal) | CPT/HCPCS: 81003; 87077; 87086; 87184 ==

== ENCOUNTER → 2024-01-18 09:59 | Outpatient (BNVA) | payer MEDICARE, MEDICAID, SELFPAY | PROVIDERS: PCP Nurse Practitioner Family; Visit Provider Nurse Practitioner Family | DX: E11.9 Type 2 diabetes mellitus without complications (principal) | CPT/HCPCS: 80053; 80061; 82607; 83036; 84443; 85025 ==

== ENCOUNTER → 2024-02-11 09:43 | Outpatient (BNVA) | payer MEDICARE, MEDICAID, SELFPAY | PROVIDERS: PCP Nurse Practitioner Family; Visit Provider Nurse Practitioner Family | DX: R30.0 Dysuria (principal); E11.9 Type 2 diabetes mellitus without complications; R07.81 Pleurodynia | CPT/HCPCS: 81003; 87077; 87086; 87184 ==

== ENCOUNTER → 2024-03-20 11:27 | Outpatient (BNVA) | payer MEDICARE, MEDICAID, SELFPAY | PROVIDERS: PCP Nurse Practitioner Family; Visit Provider Nurse Practitioner Family | DX: D50.9 Iron deficiency anemia, unspecified (principal) | CPT/HCPCS: 80053; 83550; 85025 ==

== ENCOUNTER → 2024-04-10 10:47 | Outpatient (BNVA) | payer MEDICARE, MEDICAID, SELFPAY | PROVIDERS: PCP Nurse Practitioner Family; Visit Provider Nurse Practitioner Family | DX: L30.8 Other specified dermatitis (principal); S50.911A Unspecified superficial injury of right forearm, initial encounter; X58.XXXA Exposure to other specified factors, initial encounter; L28.0 Lichen simplex chronicus; B07.8 Other viral warts; D18.01 Hemangioma of skin and subcutaneous tissue; L81.4 Other melanin hyperpigmentation; L82.1 Other seborrheic keratosis | CPT/HCPCS: 99204 ==

== ENCOUNTER → 2024-04-26 10:20 | Outpatient (BNVA) | payer MEDICARE, MEDICAID, SELFPAY | PROVIDERS: PCP Nurse Practitioner Family; Visit Provider Nurse Practitioner Family | DX: N30.00 Acute cystitis without hematuria (principal); E11.9 Type 2 diabetes mellitus without complications | CPT/HCPCS: 81000; 87077; 87086; 87184 ==

== ENCOUNTER → 2024-04-27 14:48 | Outpatient (BNVA) | payer MEDICARE, MEDICAID, SELFPAY | PROVIDERS: PCP Nurse Practitioner Family; Visit Provider Internal Medicine | DX: E11.9 Type 2 diabetes mellitus without complications (principal); J44.9 Chronic obstructive pulmonary disease, unspecified; Z79.85 Long-term (current) use of injectable non-insulin antidiabetic drugs | CPT/HCPCS: 99213 ==

== ENCOUNTER → 2024-05-01 10:02 | Outpatient (BNVA) | payer MEDICARE, MEDICAID, SELFPAY | PROVIDERS: PCP Nurse Practitioner Family; Visit Provider Nurse Practitioner Family | DX: E11.9 Type 2 diabetes mellitus without complications (principal); R09.02 Hypoxemia | CPT/HCPCS: 80061; 83036; 84443 ==

== ENCOUNTER → 2024-05-08 15:01 | Outpatient (BNVA) | payer MEDICARE, MEDICAID, SELFPAY | PROVIDERS: PCP Nurse Practitioner Family; Visit Provider Nurse Practitioner Family | DX: L30.8 Other specified dermatitis (principal); S50.911A Unspecified superficial injury of right forearm, initial encounter; X58.XXXA Exposure to other specified factors, initial encounter; L28.0 Lichen simplex chronicus | CPT/HCPCS: 99214 ==

== ENCOUNTER → 2024-08-07 12:46 | Outpatient (BNVA) | payer MEDICARE, MEDICAID, SELFPAY | PROVIDERS: PCP Nurse Practitioner Family; Visit Provider Nurse Practitioner Family | DX: E11.9 Type 2 diabetes mellitus without complications (principal) | CPT/HCPCS: 80053; 80061; 83036; 84443; 85025 ==

== ENCOUNTER → 2024-09-29 13:55 | Outpatient (BNVA) | payer MEDICARE, MEDICAID, SELFPAY | PROVIDERS: PCP Nurse Practitioner Family; Visit Provider Nurse Practitioner Family | DX: R30.0 Dysuria (principal) | CPT/HCPCS: 81000 ==

== ENCOUNTER → 2025-01-18 10:29 | Outpatient (BNVA) | payer MEDICARE, MEDICAID, SELFPAY | PROVIDERS: PCP Nurse Practitioner Family; Visit Provider Nurse Practitioner Family | DX: E11.9 Type 2 diabetes mellitus without complications (principal); G47.00 Insomnia, unspecified | CPT/HCPCS: 80061; 82607; 82746; 83036; 84443; 85025; 85651; 86140 ==

== ENCOUNTER → 2025-03-27 15:38 | Outpatient (BNVA) | payer MEDICARE, MEDICAID, SELFPAY | PROVIDERS: PCP Nurse Practitioner Family; Visit Provider Nurse Practitioner Family | DX: L30.8 Other specified dermatitis (principal); L28.0 Lichen simplex chronicus; D18.01 Hemangioma of skin and subcutaneous tissue; L81.4 Other melanin hyperpigmentation | CPT/HCPCS: 99214 ==

== ENCOUNTER → 2025-04-24 11:26 | Outpatient (BNVA) | payer MEDICARE, MEDICAID, SELFPAY | PROVIDERS: PCP Nurse Practitioner Family; Visit Provider Nurse Practitioner Family | DX: E11.9 Type 2 diabetes mellitus without complications (principal) | CPT/HCPCS: 80053; 83036 ==

== ENCOUNTER → 2025-05-02 12:22 | Outpatient (BNVA) | payer MEDICARE, MEDICAID, SELFPAY | PROVIDERS: PCP Nurse Practitioner Family; Visit Provider Nurse Practitioner Family | DX: R91.1 Solitary pulmonary nodule (principal) | CPT/HCPCS: 71046 ==

== ENCOUNTER → 2025-05-16 10:57 | Outpatient (BNVA) | payer MEDICARE, MEDICAID, SELFPAY | PROVIDERS: PCP Nurse Practitioner Family; Visit Provider Nurse Practitioner Family | DX: R07.81 Pleurodynia (principal); M40.14 Other secondary kyphosis, thoracic region; Q25.46 Tortuous aortic arch; I70.0 Atherosclerosis of aorta | CPT/HCPCS: 71046 ==